=== PATIENT | female | born 1975 | race American Indian/Alaskan Native ===

== ENCOUNTER 2019-04-19 16:05 | Emergency (ER) | payer SELFPAY ==
[2019-04-19 16:18] VITALS: BP 151/96
--- NOTE | 2019-04-19 16:19 | Event Note ---
ED Screening Note Date of service: 04/19/19 Time: 16:16 ED Screening Note: This is a 43 y.o. F. that presents to the ER with redness and drainage to bilateral eyes. Patient reports insect bites to feet last night while watering ortiz and think allergic reaction. Current smoker of cigarette and marijuana This initial assessment/diagnostic orders/clinical plan/treatment(s) is/are subject to change based on patients health status, clinical progression and re- assessment by fellow clinical providers in the ED. Further treatment and workup at subsequent clinical providers discretion. Patient/guardian urged not to elope from the ED as their condition may be serious if not clinically assessed and managed. Initial orders include:
--- NOTE | 2019-04-19 18:15 | Emergency Department Report ---
[facility] Chief Complaint: Allergic Reaction Stated Complaint: ALLERGIC REACTION ANTS WASP Time Seen by Provider: 04/19/19 16:15 Duration: 2 Days Side: Left Severity: moderate Symptoms: Yes Eye Itching, Yes Eye Redness, Yes Eye Pain, Yes Mucous Drainage, Yes Contact Lens Use, No Purulent Drainage, No Blurred Vision, No Preceding URI, No H/O Allergic Rhinitis, No Trauma, No Fever Other History: 43-year-old female presents complaining left eye redness and tearing that began after she did some yard work yesterday. Patient states that typically she is having allergic reaction. She denies vision loss, vision blurry. Trauma to the eye. She states that she is contact lenses but has taken out the one on the left after redness ED Review of Systems ROS: Stated complaint: ALLERGIC REACTION ANTS WASP Other details as noted in HPI Comment: All other systems reviewed and negative ED Past Medical Hx - Past Medical History Hx Hypertension: Yes Hx Asthma: Yes - Surgical History Hx Cholecystectomy: Yes Additional Surgical History: tubal ligation. c-sedtion x3 - Social History Smoking Status: Current Every Day Smoker Substance Use Type: Alcohol, Marijuana - Medications Home Medications: Home Medications Medication Instructions Recorded Confirmed Last Taken Type Ciprofloxacin HCl [Cipro] 500 mg PO Q12H #10 tab 05/14/14 Unknown Rx methOCARBAMOL [Robaxin] 750 mg PO Q8H PRN #21 tablet 05/14/14 Unknown Rx traMADol [Ultram 50 MG tab] 50 mg PO Q6HR PRN #25 tablet 05/14/14 Unknown Rx cephALEXin [Keflex] 500 mg PO Q6H #28 capsule 06/27/14 Unknown Rx traMADol [Ultram] 50 mg PO Q6HR PRN #14 tablet 06/27/14 Unknown Rx Ketorolac Tromethamine [Ketorolac 1 - 2 drops OP BID #1 bottle 04/19/19 Unknown Rx Tromethamine 0.4% opth soln] Ofloxacin 0.3% [Ocuflox 0.3% opth] 1 - 2 drops OP Q6H #1 bottle 04/19/19 Unknown Rx [facility] Exam - Exam General: Vital signs noted. No distress. Alert and acting appropriately. Vision is intact bilaterally Eye Exam: Left Injection, Left Mucous Discharge, Both EOMI, Neither Chemosis, Neither Abnormal Pupil, Neither Eye Foreign Body, Neither Lid Foreign Body, Neither Purulent Discharge, Neither Fluorescein Uptake HEENT: No Nasal Congestion, No Pharyngeal Erythema Remainder of HEENT: Normal Lungs: Yes Clear Lung Sounds, Yes Good Air Exchange, No Wheezes, No Stridor, No Cough, No Nasal Flaring, No Retractions, No Use of Accessory Muscles ED Course Vital Signs 04/19/19 16:16 Temperature 98 F Pulse Rate 100 H Respiratory 18 Rate Blood Pressure 151/96 O2 Sat by Pulse 99 Oximetry ED Medical Decision Making - Medical Decision Making 43-year-old male presents with left eye conjunctivitis ED course: che lamp test shows no corneal abrasion. discussed this with the patient. Discussed the patient will be going home on antibiotic eyedrops to apply 4-5 times a day I discussed the patient we'll give her billet examiner referral if needed he'll follow-up if symptoms persist. I discussed the patient is new or worsening symptoms to return to ED immediately Patient's vital signs are stable he's in no distress. Patient is vision is intact, visual acuity test performed, within normal limits. Discussed the patient to follow up with her primary care physician in 3-5 days. Critical care attestation.: If time is entered above; I have spent that time in minutes in the direct care of this critically ill patient, excluding procedure time. ED Disposition Clinical Impression: Conjunctivitis, left eye Disposition: [id number] TO HOME OR SELFCARE Is pt being admited?: No Does the pt Need Aspirin: No Condition: Stable Instructions: Conjunctivitis (ED) Additional Instructions: Make sure to follow up with the primary care physician as discussed. Take all your medications as you've been prescribed. If you have any worsening symptoms or develop new symptoms please return to ED immediately. Prescriptions: Ketorolac Tromethamine [Ketorolac Tromethamine 0.4% opth soln] 1 - 2 drops OP BID #1 bottle Ofloxacin 0.3% [Ocuflox 0.3% opth] 1 - 2 drops OP Q6H #1 bottle Referrals: EUSEBIA KLEIN MD [Primary Care Provider] - 3-5 Days [facility] [Outside] - 3-5 Days [facility] [Outside] - 3-5 Days [facility] [Outside] - 3-5 Days Forms: Work/School Release Form(ED) Time of Disposition: 18:17
== END 2019-04-19 18:37 | disposition home or self-care (01) ==
LOC: ED 16:05
DX: H10.9 Unspecified conjunctivitis (principal); J45.909 Unspecified asthma, uncomplicated; F17.200 Nicotine dependence, unspecified, uncomplicated; F12.10 Cannabis abuse, uncomplicated; I10 Essential (primary) hypertension; Z98.51 Tubal ligation status; Z91.018 Allergy to other foods; Z91.040 Latex allergy status